=== PATIENT | female | born 1995 | race Native Hawaiian/Other Pacific Islander ===

== ENCOUNTER 2021-07-14 19:52 | Emergency (ER) | payer OTHER ==
[~2021-07-14] VITALS: Ht 167.6 cm; Wt 93.9 kg
[2021-07-14 21:06] LABS: PLATELET COUNT 453 K/uL (152-353)
[2021-07-14 21:24] LABS: POTASSIUM 3.7 mmol/L (3.6-5.2)
[2021-07-14 23:32] VITALS: BP 123/69; TEMP 99
== END 2021-07-14 23:35 | disposition home or self-care (01) ==
LOC: ED 19:52
PROVIDERS: Hospitalist
DX: N12 Tubulo-interstitial nephritis, not specified as acute or chronic (principal); Z98.890 Other specified postprocedural states
CPT/HCPCS: 36415; 80053; 81000; 83690; 85008; 85027; 87088; 96360; 96365; 96366; 96375; 99284; J1170; J1885; J1956; J2405